=== PATIENT | male | born 1965 | race Hispanic/Latino ===

== ENCOUNTER 2020-03-28 16:18 | Emergency (ER) | payer OTHER ==
[2020-03-30 11:40] LABS: SARS-CoV-2 MS2 Positive; SARS-CoV-2 N Gene Positive; SARS-CoV-2 S Gene Positive; SARS-CoV-2 by NAA DETECTED (NotDetected); SARS-CoV-2 orf1ab Positive
== END 2020-03-28 17:49 | disposition home or self-care (01) ==
LOC: BURERS 16:18
DX: U07.1 COVID-19 (principal); Z11.59 Encounter for screening for other viral diseases
CPT/HCPCS: 87635; 99283; U0003